=== PATIENT | male | born 1955 | race Caucasian/White ===

== ENCOUNTER 2018-05-27 18:59 | Inpatient (IN) ==
[2018-05-27 19:27] LABS: Hematocrit 46.3 % (39.0-51.0); Hemoglobin 15.4 gm/dL (13.0-17.0); Mean Corpuscular HGB Conc 33.2 % (32.0-36.0); Mean Corpuscular Hemoglobin 29.4 pg (27.0-34.0); Mean Corpuscular Volume 88.5 fL (80.0-100.0); Mean Platelet Volume 7.7 fL (7.0-11.0); Platelet Count 745 th/mm3 (150-450); Red Blood Count 5.23 mil/mm3 (4.50-5.90); Red Cell Distribution Width 12.8 % (11.6-17.2); White Blood Count 8.5 th/mm3 (4.0-11.0)
[2018-05-27 19:28] LABS: Potassium 3.6 meq/L (3.5-5.1)
[2018-05-27 19:30] LABS: Calcium 8.6 mg/dL (8.5-10.1)
[2018-05-27 19:31] LABS: Carbon Dioxide 23.5 meq/L (21.0-32.0)
[2018-05-27 19:39] LABS: INR 1.1 Ratio; Prothrombin Time 11.4 sec (9.8-11.6)
--- NOTE | 2018-05-27 19:42 | CT ---
EXAM DATE: 05/27/2018 7:35 PM EDT AGE/SEX: 62 years / Male INDICATIONS: Stroke alert; resolved right side weakness. CLINICAL DATA: This is the patient's initial encounter. Patient reports that signs and symptoms have been present for 1 day and indicates a pain score of 0/10. MEDICAL/SURGICAL HISTORY: Stroke. Hypertension. None. RADIATION DOSE: 55.52 CTDI (mGy) COMPARISON: POI, CT BRAIN W/O CONTRAST, 04/20/2018. . TECHNIQUE: CT of the head without contrast. Using automated exposure control and adjustment of the mA and/or kV according to patient size, radiation dose was kept as low as reasonably achievable to ob tain optimal diagnostic quality images. DICOM format image data is available electronically for revi ew and comparison. FINDINGS: Cerebrum: Hypodensity is seen in the left temporal lobe unchanged from the prior study of 04/20/2018. No evidence of acute intracranial hemorrhage or extra-axial fluid collection. No mass effect or midli ne shift. No evidence of acute infarct. Posterior Fossa: The cerebellum and brainstem are intact. The 4th ventricle is midline. The cerebe llopontine angle is unremarkable. Extracranial: The visualized portion of the orbits is intact. Skull: The calvaria is intact. No evidence of skull fracture. CONCLUSION: Chronic ischemic change left temporal lobe. No acute intracranial findings. Report was called by [Dr. Longo to Dr. Carlos at 1941] Electronically signed by: Charanjit Longo MD 05/27/2018 7:41 PM EDT
[2018-05-27 19:49] LABS: Eosinophils 2 % (0-4); Lymphocytes 22 % (9-44); Monocytes 11 % (0-8); Platelet Morphology Normal (Normal); RBC Morphology Normal (Normal)
[2018-05-27 19:53] LABS: Creatine Kinase 39 U/L (39-308)
--- NOTE | 2018-05-27 20:00 | XR ---
EXAM DATE: 05/27/2018 7:55 PM EDT AGE/SEX: 62 years / Male INDICATIONS: Stroke alert. CLINICAL DATA: This is the patient's initial encounter. Patient reports that signs and symptoms have been present for 1 day and indicates a pain score of 0/10. MEDICAL/SURGICAL HISTORY: . Stroke. Hypertension. None. COMPARISON: No prior exams available for comparison. FINDINGS: Single AP view the chest. The lungs are clear. Cardiomediastinal silhouette within normal limits. No evidence of pleural effusion or pneumothorax. CONCLUSION: No acute cardiopulmonary disease identified. Electronically signed by: Charanjit Longo MD 05/27/2018 7:59 PM EDT
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
--- NOTE | 2018-05-27 20:12 | CT ---
EXAM DATE: 05/27/2018 7:59 PM EDT AGE/SEX: 62 years / Male INDICATIONS: Stroke alert; resolved right side weakness. CLINICAL DATA: This is the patient's initial encounter. Patient reports that signs and symptoms have been present for 1 day and indicates a pain score of 0/10. MEDICAL/SURGICAL HISTORY: Stroke. Hypertension. None. RADIATION DOSE: 43.13 CTDI (mGy) ; Combined studies COMPARISON: [facility], CT HEAD W/O CONTRAST, 05/27/2018. . TECHNIQUE: Volumetric scanning was performed using a multi-row detector CT scanner during bolus infu jessica of 100 ml Visipaque 320 (iodixanol) nonionic water-soluble contrast as a cumulative dose for mu ltiple exams. The data was post processed with a variety of visualization algorithms including full volume maximum intensity projection, multi-planar sliding thin slab reformation, curved planar refor mation, and surface rendering techniques. Using automated exposure control and adjustment of the mA and/or kV according to patient size, radiation dose was kept as low as reasonably achievable to obtai n optimal diagnostic quality images. DICOM format image data is available electronically for review and comparison. FINDINGS: The internal carotid arteries and vertebral arteries are widely patent bilaterally. The anterior cere bral arteries are widely patent bilaterally. There is evidence of atherosclerotic disease of the dist al M1 segment on the left with mild to moderate narrowing but no evidence of proximal high-grade sten osis or occlusion. Posterior to indicating arteries are patent bilaterally. Symmetric attenuated P1 segments of the post erior cerebral arteries likely represents developmental variant. No evidence of aneurysm. CONCLUSION: 1. Atherosclerotic disease of the left MCA with mild to moderate diffuse narrowing of the distal M1 segment. No evidence of focal proximal high-grade stenosis or occlusion. 2. Prominent patent posterior communicating arteries bilaterally. Electronically signed by: Charanjit Longo MD 05/27/2018 8:11 PM EDT
--- NOTE | 2018-05-27 20:19 | CT ---
EXAM DATE: 05/27/2018 8:09 PM EDT AGE/SEX: 62 years / Male INDICATIONS: Stroke alert; resolved right side weakness. CLINICAL DATA: This is the patient's initial encounter. Patient reports that signs and symptoms have been present for 1 day and indicates a pain score of 0/10. MEDICAL/SURGICAL HISTORY: Stroke. Hypertension. None. RADIATION DOSE: 43.13 CTDI (mGy) ; Combined studies COMPARISON: POI, CTA HEAD, 03/29/2018. . TECHNIQUE: Volumetric scanning was performed using a multirow detector CT scanner during bolus infus ion of 100 ml Visipaque 320 (iodixanol) nonionic water-soluble contrast as a cumulative dose for mul tiple exams. The data was postprocessed with a variety of visualization algorithms including full-v olume maximum intensity projection, multiplanar sliding thin-slab reformation, curved-planar reformat ion, and surface-rendering techniques. Using automated exposure control and adjustment of the mA and /or kV according to patient size, radiation dose was kept as low as reasonably achievable to obtain o ptimal diagnostic quality images. DICOM format image data is available electronically for review and comparison. Percent stenosis is calculated using the diameter of the stenotic region over the diameter of the nor mal distal internal carotid artery. FINDINGS: Aortic Arch: There is a three-vessel origin of the great vessels from the aorta. No evidence of ost ial narrowing Right Carotid: The common carotid artery is intact. Mild atherosclerotic disease of the carotid bulb . The internal carotid artery lumen is smooth without stenosis. The external carotid artery is intac t. Left Carotid: The common carotid artery is intact. Mild atherosclerotic disease of the carotid bulb. There is prominent atherosclerotic disease of the intracranial portion of the left internal carotid artery that is similar to the prior study of 03/29/2018. Atherosclerotic disease of the M1 segment of the left MCA is also a chronic finding. Vertebrals: The vertebral arteries have a symmetric diameter. No stenotic lesions are seen. CONCLUSION: Chronic prominent atherosclerotic disease of the intracranial left internal carotid artery and MCA. N o evidence of new occlusion or proximal high-grade stenosis. Electronically signed by: Charanjit Longo MD 05/27/2018 8:18 PM EDT
[2018-05-27 20:21] LABS: Bilirubin,Urine Negative (Negative); Clarity,Urine Cloudy (Clear); Color,Urine Yellow (Yellw/Straw); Glucose,Urine (UA) Negative (Negative); Leukocyte Esterase,Urine Moderate (Negative); Nitrite,Urine Positive (Negative)
[2018-05-27 20:26] LABS: Bacteria,Urine Many /hpf; Squamous Epithelial Cell,Urine 0-5 /hpf (0-5); WBC,Urine Innumerable /hpf (0-5)
[2018-05-27 20:34] LABS: Amphetamine Screen,Urine Neg (Neg); Barbiturate Screen,Urine Neg (Neg); Cannabinoid Screen,Urine Neg (Neg); Cocaine Screen,Urine Neg (Neg)
[2018-05-27] MEDS: Sod Chloride 0.9% Inj 1,000 ML IV.CONT SCH (20:40)
[2018-05-27 20:45] LABS: Opiate Screen,Urine Neg (Neg)
[2018-05-27] MEDS ORDERED: Dextrose 50% in Water 50 ML Vial IV.PUSH PRN (20:46)
--- NOTE | 2018-05-27 20:48 | P.CONNEU ---
History of Present Illness Service: NEUROLOGY Consult date: 05/27/18 Primary Care Provider: Colleen Jiménez MD Family Provider: Colleen Jiménez MD Chief Complaint: ACUTE CVA History of Present Illness: IT IS A PRIVILEGE TO PROVIDE A NEUROLOGY CONSULTATION FOR THIS 62 YO GENTLEMAN REFERRED FOR A TPA EVALUATION. PT WAS NOTED AMS FOR 2DAYS SLURRED SPEECH SINCE NOON AND RIGHT ARM WEAKNESS 20MIN BEF VISITED ER Review of Systems All other systems reviewed negative except as stated in HPI Constitutional: Reports lack of energy Eyes: Denies change in vision, Denies double vision Ears, Nose, Mouth, and Throat: Reports dizziness Gastrointestinal: Denies abdominal pain Musculoskeletal: Reports abnormal walking Neurologic: Reports abnormal speech PMFSH - History History Provided By: Family Member (sister --CVA "with bleed" March 2018, htn) - Medical / Surgical Hx Neg / Unobtainable Medical Problems Denied: Yes (CVA JUKY 2018, PER SISTER + ICH. 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) - Tobacco History Second Hand Smoke Exposure: No Tobacco Use In Past 30 Days: No Smoking Status: Unknown if ever smoked - Alcohol History How Often Do You Have a Drink Containing Alcohol: Unable to Obtain - Substance Use History Substance History: No History of Abuse - Travel History Recent Travel in the [place] Within the Last 8 Weeks: No Recent Travel Out of the Country Within the Last 8 Weeks: No - Immunization History Tetanus Immunization: Unable to Assess Medications and Allergies Active Medications: Active Medications Sodium Chloride (Ns Inj) 1,000 mls @ 70 mls/hr IV.CONT .[id number] RUDY Allergies Allergy/AdvReac Type Severity Reaction Status Date / Time No Known Allergies Allergy Unverified 05/27/18 19:18 Exam Vital signs: Vital Signs 05/27/18 19:05 05/27/18 19:10 05/27/18 19:18 Temperature 98.5 F Pulse Rate 90 90 89 Respiratory Rate 16 Blood Pressure 137/82 Pulse Oximetry 98 97 05/27/18 19:34 05/27/18 19:50 05/27/18 20:06 Temperature Pulse Rate 90 89 Respiratory Rate 16 16 Blood Pressure 137/82 140/78 Pulse Oximetry 98 97 97 Intake & Output 05/27/18 05/27/18 05/28/18 06:59 18:59 06:59 Weight 83.915 kg - Constitutional no acute distress, average body habitus - Routine HEENT Exam Head: Present: normocephalic, atraumatic Eye: Present: EOMI ENT: Present: mucous membranes moist - Routine Neck Exam Present: supple. Absent: JVD, carotid bruit - Routine Chest/Breast/Axilla Exam Chest wall: Absent: tenderness, pacemaker - Routine Respiratory Exam Present: decreased breath sounds - Routine Cardiovascular Exam Present: S1, S2 - Routine Abdominal Exam Present: soft, normoactive bowel sounds. Absent: tenderness, rebound - Routine Extremities Exam Absent: cyanosis - Routine Skin Exam Present: intact - Routine Neurological Exam MENTAL STATUS AA OX PLACE AND PERSON, NAMING + PARAPHASIA REPEAT IMPAIRED COMPREHENSIONIMPAIRED LEFT RIGHT + CONFUSION, FINGER AGNOSIA-. + ACALCULIA ATTENTION 1/3 CN II-XII + EX RIGHT FACIAL WEAKNESS MOTOR TONE SPASTIC RIGHT RIGHT SIDE 3-4/5 DTR 1+ PLANTER STIMULATES FLEXOR RESPONSES SENSORY + NL FNFT NO DYSMETRIA Results - Labs CBC & Chem 7: 05/27/18 19:10 05/27/18 19:10 Labs: Laboratory Results - last 24 hr 05/27/18 05/27/18 05/27/18 19:10 19:10 19:10 CBC w Diff Slide review pending WBC 8.5 RBC 5.23 Hgb 15.4 Hct 46.3 MCV 88.5 MCH 29.4 MCHC 33.2 RDW 12.8 Plt Count 745 H MPV 7.7 WBC Differential Manual diff final Seg Neuts % (Manual) 62 Band Neuts % (Manual) 3 Lymphocytes % (Manual) 22 Monocytes % (Manual) 11 H Eosinophils % (Manual) 2 Abs Neuts (Manual) 5.5 Differential Comment . Platelet Estimate High H Platelet Morphology Normal RBC Morphology Normal PT 11.4 INR 1.1 APTT 31.0 H Fibrinogen Sodium 137 Potassium 3.6 Chloride 103 Carbon Dioxide 23.5 Anion Gap 11 BUN 15 Creatinine 0.99 Estimated GFR 77 L POC Glucose Random Glucose 102 Calcium 8.6 Total Creatine Kinase Troponin I Urine Color Urine Clarity Urine pH Ur Specific [place] Urine Protein Urine Glucose (UA) Urine Ketones Urine Occult Blood Urine Nitrate Urine Bilirubin Urine Urobilinogen Ur Leukocyte Esterase Urine RBC Urine WBC Ur Squamous Epith Cells Urine Bacteria Micro UA Comment Ur Microscopic Review Urine Culture Comments Ur Barbiturates Screen Ur Amphetamines Screen U Benzodiazepines Scrn Urine Cocaine Screen U Cannabinoids Screen 05/27/18 05/27/18 05/27/18 19:10 19:10 19:13 CBC w Diff WBC RBC Hgb Hct MCV MCH MCHC RDW Plt Count MPV WBC Differential Seg Neuts % (Manual) Band Neuts % (Manual) Lymphocytes % (Manual) Monocytes % (Manual) Eosinophils % (Manual) Abs Neuts (Manual) Differential Comment Platelet Estimate Platelet Morphology RBC Morphology PT INR APTT Fibrinogen 416 H Sodium Potassium Chloride Carbon Dioxide Anion Gap BUN Creatinine Estimated GFR POC Glucose 102 Random Glucose Calcium Total Creatine Kinase 39 Troponin I Less than 0.02 L Urine Color Urine Clarity Urine pH Ur Specific [place] Urine Protein Urine Glucose (UA) Urine Ketones Urine Occult Blood Urine Nitrate Urine Bilirubin Urine Urobilinogen Ur Leukocyte Esterase Urine RBC Urine WBC Ur Squamous Epith Cells Urine Bacteria Micro UA Comment Ur Microscopic Review Urine Culture Comments Ur Barbiturates Screen Ur Amphetamines Screen U Benzodiazepines Scrn Urine Cocaine Screen U Cannabinoids Screen 05/27/18 05/27/18 20:10 20:10 CBC w Diff WBC RBC Hgb Hct MCV MCH MCHC RDW Plt Count MPV WBC Differential Seg Neuts % (Manual) Band Neuts % (Manual) Lymphocytes % (Manual) Monocytes % (Manual) Eosinophils % (Manual) Abs Neuts (Manual) Differential Comment Platelet Estimate Platelet Morphology RBC Morphology PT INR APTT Fibrinogen Sodium Potassium Chloride Carbon Dioxide Anion Gap BUN Creatinine Estimated GFR POC Glucose Random Glucose Calcium Total Creatine Kinase Troponin I Urine Color Yellow Urine Clarity Cloudy H Urine pH 6.0 Ur Specific [place] 1.010 Urine Protein Trace Urine Glucose (UA) Negative Urine Ketones Trace H Urine Occult Blood Small H Urine Nitrate Positive H Urine Bilirubin Negative Urine Urobilinogen 1.0 Ur Leukocyte Esterase Moderate H Urine RBC 4-15 H Urine WBC Innumerable H Ur Squamous Epith Cells 0-5 Urine Bacteria Many H Micro UA Comment Culture indicated Ur Microscopic Review Microscopic reviewed Urine Culture Comments Culture indicated Ur Barbiturates Screen Neg Ur Amphetamines Screen Neg U Benzodiazepines Scrn Neg Urine Cocaine Screen Neg U Cannabinoids Screen Neg - Imaging Impressions Chest X-Ray 05/27/18 19:18 CONCLUSION: No acute cardiopulmonary disease identified. Head CT 05/27/18 19:18 CONCLUSION: Chronic ischemic change left temporal lobe. No acute intracranial findings. Report was called by [Dr. Longo to Dr. Carlos at 1941] Head CTA 05/27/18 19:18 CONCLUSION: 1. Atherosclerotic disease of the left MCA with mild to moderate diffuse narrowing of the distal M1 segment. No evidence of focal proximal high-grade stenosis or occlusion. 2. Prominent patent posterior communicating arteries bilaterally. Neck CTA 05/27/18 19:18 CONCLUSION: Chronic prominent atherosclerotic disease of the intracranial left internal carotid artery and MCA. No evidence of new occlusion or proximal high-grade stenosis. Review/Management - Diagnosis (1) Thrombocytosis Code(s): D47.3 - Essential (hemorrhagic) thrombocythemia Status: Acute Current Visit: Yes - Review/Management Plan: 1. PLAVIX X 1 DOSE NOW, BRAIN MRI W DWI FOR ACUTE PERFUSION D/W PT AND SISTER , PT HAS CONTRAINDICATION FOR TPA BASED ON HAVING HAD ANOTHER CVA WITHING 2 MONTH, PER SISTER HAMORHAGIC CVA, AND UNCLEAR INCIDENT BEGAN. SISTER UNDERSTOOD AND AGREES W THE APPROACH 2. INCREASING CVA RISK FACTORS CONTROL 3. [employer]GER CONSULT FOR ELIDATED PLT 4. SPEECH TX ASPIRATION PRECAUTION 5. CARDILOGIST WORK UP INCLUDING HOLTER AND JEFRY FOR ? EMBOLIC MCA CVA 6. PT OT 7. D/W SISTER AND ERT , WILL D/W PMD FOR [employer]S THANKS FOR THE COURTESY OF THIS VERY KINDLY REFERRAL
--- NOTE | 2018-05-27 21:53 | ECG ---
Date Performed: 05/27/2018 Time Performed: 19:05:45 PTAGE: 62 years EKG: Sinus rhythm LOW QRS VOLTAGE IN PRECORDIAL LEADS BORDERLINE ECG INTERPRETATION BASED ON A DEFAULT AGE OF 41 YEARS NO PREVIOUS TRACING DOCTOR: Kenji Allan Interpretating Date/Time 05/27/2018 21:52:20
[2018-05-27] MEDS: Insulin NovoLOG Aspart Correctional Sugar Inj SQ SCH (23:18)
[2018-05-28 07:47] LABS: Chloride 102 meq/L (98-107); Potassium 3.4 meq/L (3.5-5.1); Sodium 137 meq/L (136-145)
[2018-05-28 07:50] LABS: Anion Gap 11 meq/L (5-15); Blood Urea Nitrogen 11 mg/dL (7-18); Calcium 8.4 mg/dL (8.5-10.1); Carbon Dioxide 24.5 meq/L (21.0-32.0); Glucose,Random 98 mg/dL (74-106)
[2018-05-28 07:53] LABS: Glomerular Filtration Rate Greater Than 89 mL/min (>89)
[2018-05-28] MEDS: Insulin NovoLOG Aspart Correctional Sugar Inj SQ SCH ×4 (08:52→21:12)
[2018-05-28 11:38] LABS: Cholesterol 134 mg/dL (120-200); Triglycerides 188 mg/dL (42-150)
[2018-05-28 11:40] LABS: Chol/HDL Ratio 4.51 Ratio; HDL Cholesterol 29.7 mg/dL (40.0-60.0); LDL Cholesterol,Calculated 67 mg/dL (0-99)
[2018-05-28] MEDS: Acetaminophen 325 MG Tablet PO PRN (11:47)
[2018-05-28] MEDS: Sod Chloride 0.9% Inj 1,000 ML IV.CONT SCH (11:49)
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
--- NOTE | 2018-05-28 13:28 | ECHRPT ---
Indication: CVA/TIA CONCLUSIONS The left ventricular systolic function is hyperdynamic with an estimated ejection fraction in the ra nge of 60- 65%. Normal left ventricular size. Wall thickness is normal. No regional wall motion abnormalities are present. BP: / HR: Rhythm: Sinus MEASUREMENTS (Male / Female) Normal Values Technical Quality:Fair 2D ECHO LV Diastolic Diameter PLAX 2.9 cm 4.2 - 5.9 / 3.9 - 5.3 cm LV Systolic Diameter PLAX 2.0 cm IVS Diastolic Thickness 0.9 cm 0.6 - 1.0 / 0.6 - 0.9 cm LVPW Diastolic Thickness 1.0 cm 0.6 - 1.0 / 0.6 - 0.9 cm LV Relative Wall Thickness 0.6 RV Internal Dim ED PLAX 2.8 cm LVOT Diameter 1.9 cm LA Systolic Diameter LX 3.3 cm 3.0 - 4.0 / 2.7 - 3.8 cm LV Ejection Fraction MOD 4C 67.9 % LV Ejection Fraction 4C AL 68.3 % M-MODE Aortic Root Diameter MM 2.6 cm LA Systolic Diameter MM 3.3 cm LA Ao Ratio MM 1.3 AV Cusp Separation MM 2.1 cm DOPPLER AV Peak Velocity 134.0 cm/s AV Peak Gradient 7.2 mmHg LVOT Peak Velocity 121.0 cm/s LVOT Peak Gradient 5.9 mmHg AV Area Cont Eq pk 2.6 cm MV Area PHT 3.6 cm Mitral E Point Velocity 63.7 cm/s Mitral A Point Velocity 80.9 cm/s Mitral E to A Ratio 0.8 LV E' Lateral Velocity 10.6 cm/s Mitral E to LV E' Lateral Ratio 6.0 LV E' Septal Velocity 8.3 cm/s Mitral E to LV E' Septal Ratio 7.7 PV Peak Velocity 111.0 cm/s PV Peak Gradient 4.9 mmHg FINDINGS LEFT VENTRICLE The left ventricular systolic function is hyperdynamic with an estimated ejection fraction in the ra nge of 60- 65%. Normal left ventricular size. Wall thickness is normal. No regional wall motion abnormalities are present. RIGHT VENTRICLE Normal right ventricular size and systolic function. LEFT ATRIUM The left atrial size is normal. RIGHT ATRIUM The right atrial size is normal. ATRIAL SEPTUM Normal atrial septal thickness without atrial level shunting by limited color doppler interrogation. AORTA The aortic root and proximal ascending aorta are normal in size on limited imaging. MITRAL VALVE Structurally normal mitral valve. No mitral valve stenosis or regurgitation. AORTIC VALVE Trileaflet aortic valve. No aortic valve stenosis or regurgitation. TRICUSPID VALVE Structurally normal tricuspid valve. No tricuspid valve stenosis or regurgitation. PULMONARY VALVE The pulmonary valve is not well visualized. VESSELS The inferior vena cava is normal in size. PERICARDIUM No pericardial effusion. Kenji Allan MD (Electronically Signed) Final Date:28 May 2018 13:27
--- NOTE | 2018-05-28 16:38 | MR ---
EXAM DATE: 05/28/2018 4:20 PM EDT AGE/SEX: 62 years / Male INDICATIONS: CVA. Right upper extremity numbness. CLINICAL DATA: This is the patient's initial encounter. Patient reports that signs and symptoms have been present for 1 day and indicates a pain score of 0/10. MEDICAL/SURGICAL HISTORY: Hypertension. CVA. . ORIF right leg. COMPARISON: [facility], MR BRAIN W AND W/O CONTRAST, 03/28/2018. . TECHNIQUE: Multiplanar, multisequence examination of the brain was performed without contrast. FINDINGS: Cerebrum: Multiple areas of restricted diffusion are seen in the left MCA distribution. There is a ne w 1.7 x 1.0 cm area of restricted diffusion in the left insular cortex. Corresponding signal abnormal ity on the T2-weighted images is seen. This finding indicates acute infarct. Adjacent area of acute i nfarct is also seen in the left frontal periventricular white matter. Previously identified areas of restricted diffusion in the anterior left frontal lobe and left temporal lobe are less prominent than on the comparison study of 03/28/2018. Chronic periventricular white matter ischemic change also note d. No evidence of mass effect or midline shift. Ventricles within normal limits. No extra-axial fluid collection or acute hemorrhage. No intracranial mass. Posterior Fossa: The cerebellum and brainstem are intact. The 4th ventricle is midline. The cerebel lopontine angle is unremarkable. The cerebellar tonsils are normal in position. Extracranial: Polyps or retention cysts again seen in the maxillary sinuses. CONCLUSION: 1. Acute infarct in the left insular cortex and left frontal periventricular white matter. 2. Subacute infarcts in the left frontal lobe and temporal lobe. These areas seen on the prior study of 03/28/2018. Electronically signed by: Charanjit Longo MD 05/28/2018 4:36 PM EDT
--- NOTE | 2018-05-28 18:05 | P.PNNEU ---
Subjective Subjective Comments: RIGHT ARM WEAKNESS Active Medications: Active Medications Acetaminophen (Tylenol) 650 mg PO Q6H PRN PRN Reason: pain or headache Last Admin: 05/28/18 11:47 Dose: 650 mg Aspirin (Aspirin Chew) 81 mg PO DAILY [facility] Last Admin: 05/28/18 08:52 Dose: 81 mg Clopidogrel Bisulfate (Plavix) 75 mg PO DAILY [facility] Last Admin: 05/28/18 08:52 Dose: 75 mg Dextrose (D50w Vial) 50 ml IV.PUSH UNSCH PRN PRN Reason: PER HYPOGLYCEMIA PROTOCOL Enalaprilat (Vasotec Inj) 1.25 mg IV.PUSH Q4H PRN PRN Reason: For SBP > 220 or DBP > 120 Glucagon (Glucagon Inj) 1 mg OTHER UNSCH PRN PRN Reason: for Hypoglycemia Protocol Sodium Chloride (Ns Inj) 1,000 mls @ 70 mls/hr IV.CONT .[id number] [facility] Last Admin: 05/28/18 11:49 Dose: 70 mls/hr Ceftriaxone Sodium 1,000 mg/ (Sodium Chloride) 100 mls @ 200 mls/hr IV.SIG Q24H [facility] Last Infusion: 05/28/18 16:32 Dose: Infused Insulin Aspart (Novolog Insulin Correctional Sugar Inj) 0 unit SQ ACHS [facility]; Protocol Last Admin: 05/28/18 17:12 Dose: Not Given Pravastatin Sodium (Pravachol) 40 mg PO HS [facility] Last Admin: 05/27/18 23:39 Dose: 40 mg Ropinirole HCl (Requip) 0.25 mg PO [facility] Sodium Chloride (Ns Flush) 2 ml IV.FLUSH BID [facility] Last Admin: 05/28/18 08:52 Dose: Not Given Sodium Chloride (Ns Flush) 2 ml IV.FLUSH PRN PRN PRN Reason: FLUSH AFTER USING IV ACCESS Allergies/Adverse Reactions: Allergies Allergy/AdvReac Type Severity Reaction Status Date / Time No Known Allergies Allergy Unverified 05/27/18 19:18 Review of Systems All other systems reviewed negative except as stated in HPI Physical Exam Vital signs: Vital Signs 05/27/18 19:05 05/27/18 19:10 05/27/18 19:18 Temperature 98.5 F Pulse Rate 90 90 89 Respiratory Rate 16 Blood Pressure 137/82 Pulse Oximetry 98 97 05/27/18 19:34 05/27/18 19:50 05/27/18 20:06 Temperature Pulse Rate 90 89 Respiratory Rate 16 16 Blood Pressure 137/82 140/78 Pulse Oximetry 98 97 97 05/27/18 21:13 05/27/18 21:15 05/27/18 22:20 Temperature Pulse Rate 87 88 79 Respiratory Rate 16 Blood Pressure 147/72 H Pulse Oximetry 98 05/28/18 00:00 05/28/18 04:00 05/28/18 08:00 Temperature 98.6 F 98.3 F Pulse Rate 91 H 72 67 Respiratory Rate 18 18 Blood Pressure 130/77 133/75 Pulse Oximetry 96 96 05/28/18 12:00 Temperature 97.2 F L Pulse Rate 80 Respiratory Rate 20 Blood Pressure 127/74 Pulse Oximetry 99 Intake & Output 05/27/18 05/28/18 05/28/18 18:59 06:59 18:59 Intake Total 300 / 300 1540 / 1540 Output Total 900 / 900 2201 / 2201 Balance -600 / -600 -661 / -661 Weight 84 kg Intake: IV 100 / 100 1100 / 1100 NS Inj 1,000 ML @ 70 mls/hr IV. 1000 / 1000 CONT .[id number] RUDY Rx#: [id number] Rocephin Inj 1,000 MG In NS Inj 100 / 100 100 / 100 100 ML @ 200 mls/hr IV.SIG Q24H RUDY Rx#:[id number] Oral 200 / 200 440 / 440 Output: Urine 900 / 900 2200 / 2200 Stool 1 / 1 Other: # Voids 2 Date of Last Bowel Movement 05/26/18 05/28/18 Weight On Admission 84 kg - Constitutional no acute distress - Routine HEENT Exam Head: Present: normocephalic, atraumatic Eye: Present: EOMI ENT: Present: mucous membranes moist Objective Laboratory Results - last 24 hr 05/27/18 05/27/18 05/27/18 19:10 19:10 19:10 CBC w Diff Slide review pending WBC 8.5 RBC 5.23 Hgb 15.4 Hct 46.3 MCV 88.5 MCH 29.4 MCHC 33.2 RDW 12.8 Plt Count 745 H MPV 7.7 WBC Differential Manual diff final Seg Neuts % (Manual) 62 Band Neuts % (Manual) 3 Lymphocytes % (Manual) 22 Monocytes % (Manual) 11 H Eosinophils % (Manual) 2 Abs Neuts (Manual) 5.5 Differential Comment . Platelet Estimate High H Platelet Morphology Normal RBC Morphology Normal PT INR APTT Fibrinogen Sodium 137 Potassium 3.6 Chloride 103 Carbon Dioxide 23.5 Anion Gap 11 BUN 15 Creatinine 0.99 Estimated GFR 77 L POC Glucose Random Glucose 102 Hemoglobin A1c Calcium 8.6 Total Creatine Kinase Troponin I Triglycerides Cholesterol LDL Cholesterol, Calc HDL Cholesterol Cholesterol/HDL Ratio Urine Color Urine Clarity Urine pH Ur Specific [place] Urine Protein Urine Glucose (UA) Urine Ketones Urine Occult Blood Urine Nitrate Urine Bilirubin Urine Urobilinogen Ur Leukocyte Esterase Urine RBC Urine WBC Ur Squamous Epith Cells Urine Bacteria Micro UA Comment Ur Microscopic Review Urine Culture Comments Urine Opiates Screen Ur Barbiturates Screen Ur Amphetamines Screen U Benzodiazepines Scrn Urine Cocaine Screen U Cannabinoids Screen Blood Type O Negative Blood Type Recheck Not needed Antibody Screen Positive H Antibody Identification Antigen Identification M Antigen - NEGATIVE MTS Gel Crossmatch See Detail 05/27/18 05/27/18 05/27/18 19:10 19:10 19:10 CBC w Diff WBC RBC Hgb Hct MCV MCH MCHC RDW Plt Count MPV WBC Differential Seg Neuts % (Manual) Band Neuts % (Manual) Lymphocytes % (Manual) Monocytes % (Manual) Eosinophils % (Manual) Abs Neuts (Manual) Differential Comment Platelet Estimate Platelet Morphology RBC Morphology PT 11.4 INR 1.1 APTT 31.0 H Fibrinogen 416 H Sodium Potassium Chloride Carbon Dioxide Anion Gap BUN Creatinine Estimated GFR POC Glucose Random Glucose Hemoglobin A1c Calcium Total Creatine Kinase 39 Troponin I Less than 0.02 L Triglycerides Cholesterol LDL Cholesterol, Calc HDL Cholesterol Cholesterol/HDL Ratio Urine Color Urine Clarity Urine pH Ur Specific [place] Urine Protein Urine Glucose (UA) Urine Ketones Urine Occult Blood Urine Nitrate Urine Bilirubin Urine Urobilinogen Ur Leukocyte Esterase Urine RBC Urine WBC Ur Squamous Epith Cells Urine Bacteria Micro UA Comment Ur Microscopic Review Urine Culture Comments Urine Opiates Screen Ur Barbiturates Screen Ur Amphetamines Screen U Benzodiazepines Scrn Urine Cocaine Screen U Cannabinoids Screen Blood Type Blood Type Recheck Antibody Screen Antibody Identification Antigen Identification MTS Gel Crossmatch 05/27/18 05/27/18 05/27/18 19:13 20:10 20:10 CBC w Diff WBC RBC Hgb Hct MCV MCH MCHC RDW Plt Count MPV WBC Differential Seg Neuts % (Manual) Band Neuts % (Manual) Lymphocytes % (Manual) Monocytes % (Manual) Eosinophils % (Manual) Abs Neuts (Manual) Differential Comment Platelet Estimate Platelet Morphology RBC Morphology PT INR APTT Fibrinogen Sodium Potassium Chloride Carbon Dioxide Anion Gap BUN Creatinine Estimated GFR POC Glucose 102 Random Glucose Hemoglobin A1c Calcium Total Creatine Kinase Troponin I Triglycerides Cholesterol LDL Cholesterol, Calc HDL Cholesterol Cholesterol/HDL Ratio Urine Color Yellow Urine Clarity Cloudy H Urine pH 6.0 Ur Specific [place] 1.010 Urine Protein Trace Urine Glucose (UA) Negative Urine Ketones Trace H Urine Occult Blood Small H Urine Nitrate Positive H Urine Bilirubin Negative Urine Urobilinogen 1.0 Ur Leukocyte Esterase Moderate H Urine RBC 4-15 H Urine WBC Innumerable H Ur Squamous Epith Cells 0-5 Urine Bacteria Many H Micro UA Comment Culture indicated Ur Microscopic Review Microscopic reviewed Urine Culture Comments Culture indicated Urine Opiates Screen Neg Ur Barbiturates Screen Neg Ur Amphetamines Screen Neg U Benzodiazepines Scrn Neg Urine Cocaine Screen Neg U Cannabinoids Screen Neg Blood Type Blood Type Recheck Antibody Screen Antibody Identification Antigen Identification MTS Gel Crossmatch 05/27/18 05/28/18 05/28/18 23:17 05:06 07:00 CBC w Diff WBC RBC Hgb Hct MCV MCH MCHC RDW Plt Count MPV WBC Differential Seg Neuts % (Manual) Band Neuts % (Manual) Lymphocytes % (Manual) Monocytes % (Manual) Eosinophils % (Manual) Abs Neuts (Manual) Differential Comment Platelet Estimate Platelet Morphology RBC Morphology PT INR APTT Fibrinogen Sodium 137 Potassium 3.4 L Chloride 102 Carbon Dioxide 24.5 Anion Gap 11 BUN 11 Creatinine 0.77 Estimated GFR Greater than 89 POC Glucose 90 Random Glucose 98 Hemoglobin A1c Calcium 8.4 L Total Creatine Kinase Troponin I Triglycerides 188 H Cholesterol 134 LDL Cholesterol, Calc 67 HDL Cholesterol 29.7 L Cholesterol/HDL Ratio 4.51 Urine Color Urine Clarity Urine pH Ur Specific [place] Urine Protein Urine Glucose (UA) Urine Ketones Urine Occult Blood Urine Nitrate Urine Bilirubin Urine Urobilinogen Ur Leukocyte Esterase Urine RBC Urine WBC Ur Squamous Epith Cells Urine Bacteria Micro UA Comment Ur Microscopic Review Urine Culture Comments Urine Opiates Screen Ur Barbiturates Screen Ur Amphetamines Screen U Benzodiazepines Scrn Urine Cocaine Screen U Cannabinoids Screen Blood Type Blood Type Recheck Antibody Screen Antibody Identification Anti-M Antigen Identification MTS Gel Crossmatch 05/28/18 05/28/18 05/28/18 07:00 07:49 11:54 CBC w Diff WBC RBC Hgb Hct MCV MCH MCHC RDW Plt Count MPV WBC Differential Seg Neuts % (Manual) Band Neuts % (Manual) Lymphocytes % (Manual) Monocytes % (Manual) Eosinophils % (Manual) Abs Neuts (Manual) Differential Comment Platelet Estimate Platelet Morphology RBC Morphology PT INR APTT Fibrinogen Sodium Potassium Chloride Carbon Dioxide Anion Gap BUN Creatinine Estimated GFR POC Glucose 93 95 Random Glucose Hemoglobin A1c 6.0 Calcium Total Creatine Kinase Troponin I Triglycerides Cholesterol LDL Cholesterol, Calc HDL Cholesterol Cholesterol/HDL Ratio Urine Color Urine Clarity Urine pH Ur Specific [place] Urine Protein Urine Glucose (UA) Urine Ketones Urine Occult Blood Urine Nitrate Urine Bilirubin Urine Urobilinogen Ur Leukocyte Esterase Urine RBC Urine WBC Ur Squamous Epith Cells Urine Bacteria Micro UA Comment Ur Microscopic Review Urine Culture Comments Urine Opiates Screen Ur Barbiturates Screen Ur Amphetamines Screen U Benzodiazepines Scrn Urine Cocaine Screen U Cannabinoids Screen Blood Type Blood Type Recheck Antibody Screen Antibody Identification Antigen Identification MTS Gel Crossmatch 05/28/18 17:00 CBC w Diff WBC RBC Hgb Hct MCV MCH MCHC RDW Plt Count MPV WBC Differential Seg Neuts % (Manual) Band Neuts % (Manual) Lymphocytes % (Manual) Monocytes % (Manual) Eosinophils % (Manual) Abs Neuts (Manual) Differential Comment Platelet Estimate Platelet Morphology RBC Morphology PT INR APTT Fibrinogen Sodium Potassium Chloride Carbon Dioxide Anion Gap BUN Creatinine Estimated GFR POC Glucose 113 H Random Glucose Hemoglobin A1c Calcium Total Creatine Kinase Troponin I Triglycerides Cholesterol LDL Cholesterol, Calc HDL Cholesterol Cholesterol/HDL Ratio Urine Color Urine Clarity Urine pH Ur Specific [place] Urine Protein Urine Glucose (UA) Urine Ketones Urine Occult Blood Urine Nitrate Urine Bilirubin Urine Urobilinogen Ur Leukocyte Esterase Urine RBC Urine WBC Ur Squamous Epith Cells Urine Bacteria Micro UA Comment Ur Microscopic Review Urine Culture Comments Urine Opiates Screen Ur Barbiturates Screen Ur Amphetamines Screen U Benzodiazepines Scrn Urine Cocaine Screen U Cannabinoids Screen Blood Type Blood Type Recheck Antibody Screen Antibody Identification Antigen Identification MTS Gel Crossmatch Microbiology 05/27/18 20:10 Urine Culture - Preliminary Clean Catch Urine gram negative rods Review/Management - Diagnosis (1) Thrombocytosis Code(s): D47.3 - Essential (hemorrhagic) thrombocythemia Status: Acute Current Visit: Yes - Review/Management Plan: 1. TO CHECKBRAIN MRI W DWI FOR ACUTE PERFUSION D/W PT AND SISTER, PT HAS CONTRAINDICATION FOR TPA BASED ON HAVING HAD ANOTHER CVA WITHING 2 MONTH, PER SISTER HAMORHAGIC CVA, AND UNCLEAR INCIDENT BEGAN. SISTER UNDERSTOOD AND AGREES W THE APPROACH 2. INCREASING CVA RISK FACTORS CONTROL 3. MAY [employer] DIRECTOR OF CURRICULUM AND INSTRUCTION CONSULT FOR ELIDATED PLT 4. SPEECH TX ASPIRATION PRECAUTION 5. CARDILOGIST WORK UP INCLUDING HOLTER AND JEFRY FOR ? EMBOLIC MCA CVA 6. PT OT 7. D/W SISTER AND ERT , WILL D/W PMD FOR APPROVELS THANKS FOR THE COURTESY OF THIS VERY KINDLY REFERRAL
[2018-05-29] MEDS: Sod Chloride 0.9% Inj 1,000 ML IV.CONT SCH ×3 (00:11→14:13)
[2018-05-29 04:21] LABS: Baso # (Auto) 0.1 th/mm3 (0.0-0.2); Baso % (Auto) 1.3 % (0.0-2.0); Eos # (Auto) 0.2 th/mm3 (0.0-0.4); Eos % (Auto) 3.9 % (0.0-4.0); Hematocrit 41.5 % (39.0-51.0); Hemoglobin 14.4 gm/dL (13.0-17.0); Lymph # (Auto) 1.8 th/mm3 (1.0-4.8); Lymph % (Auto) 27.7 % (9.0-44.0); Mean Corpuscular HGB Conc 34.7 % (32.0-36.0); Mean Corpuscular Volume 86.4 fL (80.0-100.0); Mean Platelet Volume 7.1 fL (7.0-11.0); Mono # (Auto) 1.7 th/mm3 (0.0-0.9); Mono % (Auto) 26.5 % (0.0-8.0); Neut # (Auto) 2.6 th/mm3 (1.8-7.7); Neut % (Auto) 40.6 % (16.0-70.0); Platelet Count 645 th/mm3 (150-450); Red Blood Count 4.81 mil/mm3 (4.50-5.90); Red Cell Distribution Width 13.8 % (11.6-17.2); White Blood Count 6.4 th/mm3 (4.0-11.0)
[2018-05-29 04:52] LABS: Alanine Aminotransferase 32 U/L (12-78); Anion Gap 10 meq/L (5-15); Aspartate Aminotransferase 27 U/L (15-37); Blood Urea Nitrogen 10 mg/dL (7-18); Calcium 8.4 mg/dL (8.5-10.1); Carbon Dioxide 23.4 meq/L (21.0-32.0); Chloride 106 meq/L (98-107); Glomerular Filtration Rate Greater Than 89 mL/min (>89); Glucose,Random 93 mg/dL (74-106); Potassium 3.4 meq/L (3.5-5.1); Sodium 139 meq/L (136-145)
[2018-05-29 04:55] LABS: Alkaline Phosphatase 100 U/L (45-117); Total Protein 7.6 g/dL (6.4-8.2)
--- NOTE | 2018-05-29 07:47 | P.CONCA ---
History of Present Illness Primary Care Provider: Colleen Jiménez MD Family Provider: Colleen Jiménez MD Chief Complaint: ACUTE CVA History of Present Illness: 62-year-old male with a past medical history of HTN, HLD who presented for right arm weakness. The patient was found to have acute CVA. The patient also had a recent CVA in March. We have been consulted to evaluate for cardiac causes of recurrent occult CVA. The patient denies any past medical history of arrhythmia, A. fib, palpitations. EKG and telemetry with NSR. JEFRY done this admission was unremarkable. Review of Systems All other systems reviewed negative except as stated in HPI [facility] - History History Provided By: Patient, Medical Record - Medical / Surgical Hx Neg / Unobtainable Medical Problems Denied: Yes (CVA JUKY 2018, PER SISTER + ICH. 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) - Medical History Medical History: Medical History (Last Reviewed 05/29/18 @ 09:24 by Jeanie Monahan) Chronic headache Frequent UTI GERD (gastroesophageal reflux disease) HLD (hyperlipidemia) HTN (hypertension) History of CVA (cerebrovascular accident) History of diverticulitis History of end stage renal disease History of hypertension History of intracranial hemorrhage History of pneumothorax RLS (restless legs syndrome) Short-term memory loss - Surgical History Surgical History: Surgical History (Last Reviewed 05/29/18 @ 09:24 by Jeanie Monahan) Post-splenectomy - Tobacco History Second Hand Smoke Exposure: No Tobacco Use In Past 30 Days: No Smoking Status: Never smoker - Alcohol History How Often Do You Have a Drink Containing Alcohol: Never - Substance Use History Substance History: No History of Abuse - Travel History Recent Travel in the [place] Within the Last 8 Weeks: No Recent Travel Out of the Country Within the Last 8 Weeks: No - Immunization History Tetanus Immunization: Unable to Assess Hx Influenza Vaccine This Season: No Medications and Allergies Allergies Allergy/AdvReac Type Severity Reaction Status Date / Time No Known Allergies Allergy Unverified 05/27/18 19:18 Home Medications Medication Instructions Recorded Confirmed Type amlodipine 5 mg PO BID 05/27/18 05/27/18 History aspirin 81 mg PO DAILY 05/27/18 05/27/18 History atorvastatin 10 mg PO HS 05/27/18 05/27/18 History enalapril maleate 20 mg PO BID 05/27/18 05/27/18 History omeprazole magnesium [Prilosec OTC] 20 mg PO DAILY 05/27/18 05/27/18 History tramadol 50 mg PO Q12H 05/27/18 05/27/18 History Active Medications: Active Medications Acetaminophen (Tylenol) 650 mg PO Q6H PRN PRN Reason: pain or headache Last Admin: 05/28/18 11:47 Dose: 650 mg Aspirin (Aspirin Chew) 81 mg PO DAILY [facility] Last Admin: 05/28/18 08:52 Dose: 81 mg Clopidogrel Bisulfate (Plavix) 75 mg PO DAILY [facility] Last Admin: 05/28/18 08:52 Dose: 75 mg Dextrose (D50w Vial) 50 ml IV.PUSH UNSCH PRN PRN Reason: PER HYPOGLYCEMIA PROTOCOL Enalaprilat (Vasotec Inj) 1.25 mg IV.PUSH Q4H PRN PRN Reason: For SBP > 220 or DBP > 120 Glucagon (Glucagon Inj) 1 mg OTHER UNSCH PRN PRN Reason: for Hypoglycemia Protocol Sodium Chloride (Ns Inj) 1,000 mls @ 70 mls/hr IV.CONT .[id number] [facility] Last Infusion: 05/29/18 03:21 Dose: 70 mls/hr Ceftriaxone Sodium 1,000 mg/ (Sodium Chloride) 100 mls @ 200 mls/hr IV.SIG Q24H [facility] Last Infusion: 05/28/18 16:32 Dose: Infused Insulin Aspart (Novolog Insulin Correctional Sugar Inj) 0 unit SQ ACHS [facility]; Protocol Last Admin: 05/28/18 21:12 Dose: Not Given Pravastatin Sodium (Pravachol) 40 mg PO HS [facility] Last Admin: 05/28/18 21:24 Dose: 40 mg Ropinirole HCl (Requip) 0.25 mg PO HS [facility] Last Admin: 05/28/18 21:24 Dose: 0.25 mg Sodium Chloride (Ns Flush) 2 ml IV.FLUSH BID [facility] Last Admin: 05/28/18 21:13 Dose: Not Given Sodium Chloride (Ns Flush) 2 ml IV.FLUSH PRN PRN PRN Reason: FLUSH AFTER USING IV ACCESS Exam Vital signs: Vital Signs 05/28/18 08:00 05/28/18 12:00 05/28/18 19:00 Temperature 97.2 F L 98 F Pulse Rate 67 80 82 Respiratory Rate 20 16 Blood Pressure 127/74 149/88 H Pulse Oximetry 99 98 05/28/18 20:00 05/28/18 21:00 05/28/18 22:00 Temperature Pulse Rate 85 84 85 Respiratory Rate Blood Pressure Pulse Oximetry 05/28/18 23:00 05/29/18 00:00 05/29/18 01:00 Temperature 98.5 F Pulse Rate 76 69 67 Respiratory Rate 16 Blood Pressure 135/77 Pulse Oximetry 98 05/29/18 02:00 05/29/18 03:00 05/29/18 04:00 Temperature 98.4 F Pulse Rate 70 89 66 Respiratory Rate 16 Blood Pressure 155/80 H Pulse Oximetry 96 05/29/18 05:00 05/29/18 06:00 Temperature Pulse Rate 84 66 Respiratory Rate Blood Pressure Pulse Oximetry Intake & Output 05/28/18 05/29/18 05/29/18 18:59 06:59 18:59 Intake Total 1540 / 1540 740 / 740 Output Total 2201 / 2201 400 / 400 Balance -661 / -661 340 / 340 Weight 169 lb 12.095 oz Intake: IV 1100 / 1100 500 / 500 NS Inj 1,000 ML @ 70 mls/hr IV. 1000 / 1000 500 / 500 CONT .[id number] RUDY Rx#: [id number] Rocephin Inj 1,000 MG In NS Inj 100 / 100 100 ML @ 200 mls/hr IV.SIG Q24H RUDY Rx#:[id number] Oral 440 / 440 240 / 240 Output: Urine 2200 / 2200 400 / 400 Stool 1 / Other: # Voids 2 3 Date of Last Bowel Movement 05/28/18 05/26/18 Narrative: GENERAL: Well-developed well-nourished. In no acute distress. NECK: No carotid bruits. No JVD. CARDIOVASCULAR: Regular rate and rhythm. No murmur appreciated. RESPIRATORY: No accessory muscle use. Clear to auscultation. Breath sounds equal bilaterally. MUSCULOSKELETAL: No clubbing or cyanosis. No edema. NEUROLOGICAL: Dysarthria. RUE weaker than LUE. Results 05/29/18 03:50 05/29/18 03:50 Cardiac Enzymes 05/29/18 Range/Units 03:50 AST 27 (15-37) U/L Lipids 05/28/18 Range/Units 07:00 Triglycerides 188 H (42-150) mg/dL Cholesterol 134 (120-200) mg/dL HDL Cholesterol 29.7 L (40.0-60.0) mg/dL Cholesterol/HDL Ratio 4.51 Ratio CBC 05/29/18 Range/Units 03:50 WBC 6.4 (4.0-11.0) th/mm3 RBC 4.81 (4.50-5.90) mil/mm3 Hgb 14.4 (13.0-17.0) gm/dL Hct 41.5 (39.0-51.0) % Plt Count 645 H (150-450) th/mm3 Neut # (Auto) 2.6 (1.8-7.7) th/mm3 Lymph # (Auto) 1.8 (1.0-4.8) th/mm3 [place] # (Auto) 1.7 H (0.0-0.9) th/mm3 Eos # (Auto) 0.2 (0.0-0.4) th/mm3 Baso # (Auto) 0.1 (0.0-0.2) th/mm3 Comprehensive Metabolic Panel 05/28/18 05/29/18 Range/Units 07:00 03:50 Sodium 137 139 (136-145) meq/L Potassium 3.4 L 3.4 L (3.5-5.1) meq/L Chloride 102 106 (98-107) meq/L Carbon Dioxide 24.5 23.4 (21.0-32.0) meq/L BUN 11 10 (7-18) mg/dL Creatinine 0.77 0.63 (0.60-1.30) mg/dL Calcium 8.4 L 8.4 L (8.5-10.1) mg/dL AST 27 (15-37) U/L ALT 32 (12-78) U/L Alkaline Phosphatase 100 (45-117) U/L Total Protein 7.6 (6.4-8.2) g/dL Albumin 3.0 L (3.4-5.0) g/dL Intake and Output 05/28/18 05/29/18 05/29/18 22:59 06:59 14:59 Intake Total 840 / 840 240 / 240 Output Total 1401 / 1401 400 / 400 Balance -561 / -561 -160 / -160 Intake: IV 600 / 600 0 / 0 NS Inj 1,000 ML @ 70 mls/hr IV. 500 / 500 0 / 0 CONT .[id number] RUDY Rx#: [id number] Rocephin Inj 1,000 MG In NS Inj 100 / 100 100 ML @ 200 mls/hr IV.SIG Q24H RUDY Rx#:[id number] Oral 240 / 240 240 / 240 Output: Urine 1400 / 1400 400 / 400 Stool Other: # Voids 2 3 Date of Last Bowel Movement 05/26/18 05/26/18 Weight 169 lb 12.095 oz Assessment and Plan - Plan 62-year-old male with a past medical history of HTN, HLD who presented for right arm weakness. The patient was found to have acute CVA. The patient also had a recent CVA in March. Recurrent occult CVA: Rule out PFO, n.p.o. for JEFRY today. Continue telemetry monitoring for now, consider event monitor as outpatient. Discussed Condition With: Patient with RN at bedside, Dr. Mario - Attending Attestation recurrent CVA on aspirin therapy MRI confirms acute stroke and remote infarcts in multiple territories consistent with possible cardioembolic etiology NPO JEFRY today if negative, will need event monitor x 30 days mgt per neurology (aspirin + plavix)
[2018-05-29] MEDS: Insulin NovoLOG Aspart Correctional Sugar Inj SQ SCH ×4 (07:57→22:28)
--- NOTE | 2018-05-29 09:52 | P.PNIM ---
Subjective Interval history: no new complaints says the right arm still weak with parasthesias Physical Exam Vital signs: Vital Signs 05/28/18 12:00 05/28/18 19:00 05/28/18 20:00 Temperature 97.2 F L 98 F Pulse Rate 80 82 85 Respiratory Rate 20 16 Blood Pressure 127/74 149/88 H Pulse Oximetry 99 98 05/28/18 21:00 05/28/18 22:00 05/28/18 23:00 Temperature 98.5 F Pulse Rate 84 85 76 Respiratory Rate 16 Blood Pressure 135/77 Pulse Oximetry 98 05/29/18 00:00 05/29/18 01:00 05/29/18 02:00 Temperature Pulse Rate 69 67 70 Respiratory Rate Blood Pressure Pulse Oximetry 05/29/18 03:00 05/29/18 04:00 05/29/18 05:00 Temperature 98.4 F Pulse Rate 89 66 84 Respiratory Rate 16 Blood Pressure 155/80 H Pulse Oximetry 96 05/29/18 06:00 05/29/18 07:00 05/29/18 08:00 Temperature 98.1 F Pulse Rate 66 83 89 Respiratory Rate 18 Blood Pressure 121/63 Pulse Oximetry 98 05/29/18 09:00 05/29/18 09:41 Temperature Pulse Rate 89 93 H Respiratory Rate Blood Pressure Pulse Oximetry Intake & Output 05/28/18 05/29/18 05/29/18 18:59 06:59 18:59 Intake Total 1540 / 1540 740 / 740 Output Total 2201 / 2201 400 / 400 Balance -661 / -661 340 / 340 Weight 77 kg Intake: IV 1100 / 1100 500 / 500 NS Inj 1,000 ML @ 70 mls/hr IV. 1000 / 1000 500 / 500 CONT .[id number] RUDY Rx#: [id number] Rocephin Inj 1,000 MG In NS Inj 100 / 100 100 ML @ 200 mls/hr IV.SIG Q24H RUDY Rx#:[id number] Oral 440 / 440 240 / 240 Output: Urine 2200 / 2200 400 / 400 Stool 1 / 1 Other: # Voids 2 3 Date of Last Bowel Movement 05/28/18 05/26/18 heart reg lung cta abd s/nt ext no edema right arm weakness Results - Labs CBC & Chem 7: 05/29/18 03:50 05/29/18 03:50 Laboratory Results - last 24 hr 05/27/18 05/28/18 05/28/18 20:10 07:00 07:00 WBC RBC Hgb Hct MCV MCH MCHC RDW Plt Count MPV Neut % (Auto) Lymph % (Auto) [place] % (Auto) Eos % (Auto) Baso % (Auto) Neut # (Auto) Lymph # (Auto) [place] # (Auto) Eos # (Auto) Baso # (Auto) WBC Differential Differential Comment Sodium Potassium Chloride Carbon Dioxide Anion Gap BUN Creatinine Estimated GFR POC Glucose Random Glucose Hemoglobin A1c 6.0 Calcium Total Bilirubin AST ALT Alkaline Phosphatase Total Protein Albumin Triglycerides 188 H Cholesterol 134 LDL Cholesterol, Calc 67 HDL Cholesterol 29.7 L Cholesterol/HDL Ratio 4.51 Urine Color Yellow Urine Clarity Cloudy H Urine pH 6.0 Ur Specific [place] 1.010 Urine Protein Trace Urine Glucose (UA) Negative Urine Ketones Trace H Urine Occult Blood Small H Urine Nitrate Positive H Urine Bilirubin Negative Urine Urobilinogen 1.0 Ur Leukocyte Esterase Moderate H Urine RBC 4-15 H Urine WBC Innumerable H Ur Squamous Epith Cells 0-5 Urine Bacteria Many H Micro UA Comment Culture indicated Ur Microscopic Review Microscopic reviewed Urine Culture Comments Culture indicated 05/28/18 05/28/18 05/28/18 11:54 17:00 20:01 WBC RBC Hgb Hct MCV MCH MCHC RDW Plt Count MPV Neut % (Auto) Lymph % (Auto) [place] % (Auto) Eos % (Auto) Baso % (Auto) Neut # (Auto) Lymph # (Auto) [place] # (Auto) Eos # (Auto) Baso # (Auto) WBC Differential Differential Comment Sodium Potassium Chloride Carbon Dioxide Anion Gap BUN Creatinine Estimated GFR POC Glucose 95 113 H 37 L* Random Glucose Hemoglobin A1c Calcium Total Bilirubin AST ALT Alkaline Phosphatase Total Protein Albumin Triglycerides Cholesterol LDL Cholesterol, Calc HDL Cholesterol Cholesterol/HDL Ratio Urine Color Urine Clarity Urine pH Ur Specific [place] Urine Protein Urine Glucose (UA) Urine Ketones Urine Occult Blood Urine Nitrate Urine Bilirubin Urine Urobilinogen Ur Leukocyte Esterase Urine RBC Urine WBC Ur Squamous Epith Cells Urine Bacteria Micro UA Comment Ur Microscopic Review Urine Culture Comments 05/28/18 05/29/18 05/29/18 20:04 03:50 03:50 WBC 6.4 RBC 4.81 Hgb 14.4 Hct 41.5 MCV 86.4 MCH 30.0 MCHC 34.7 RDW 13.8 Plt Count 645 H MPV 7.1 Neut % (Auto) 40.6 Lymph % (Auto) 27.7 [place] % (Auto) 26.5 H Eos % (Auto) 3.9 Baso % (Auto) 1.3 Neut # (Auto) 2.6 Lymph # (Auto) 1.8 [place] # (Auto) 1.7 H Eos # (Auto) 0.2 Baso # (Auto) 0.1 WBC Differential . Differential Comment Auto diff final Sodium 139 Potassium 3.4 L Chloride 106 Carbon Dioxide 23.4 Anion Gap 10 BUN 10 Creatinine 0.63 Estimated GFR Greater than 89 POC Glucose 97 Random Glucose 93 Hemoglobin A1c Calcium 8.4 L Total Bilirubin 0.6 AST 27 ALT 32 Alkaline Phosphatase 100 Total Protein 7.6 Albumin 3.0 L Triglycerides Cholesterol LDL Cholesterol, Calc HDL Cholesterol Cholesterol/HDL Ratio Urine Color Urine Clarity Urine pH Ur Specific [place] Urine Protein Urine Glucose (UA) Urine Ketones Urine Occult Blood Urine Nitrate Urine Bilirubin Urine Urobilinogen Ur Leukocyte Esterase Urine RBC Urine WBC Ur Squamous Epith Cells Urine Bacteria Micro UA Comment Ur Microscopic Review Urine Culture Comments 05/29/18 07:57 WBC RBC Hgb Hct MCV MCH MCHC RDW Plt Count MPV Neut % (Auto) Lymph % (Auto) [place] % (Auto) Eos % (Auto) Baso % (Auto) Neut # (Auto) Lymph # (Auto) [place] # (Auto) Eos # (Auto) Baso # (Auto) WBC Differential Differential Comment Sodium Potassium Chloride Carbon Dioxide Anion Gap BUN Creatinine Estimated GFR POC Glucose 87 Random Glucose Hemoglobin A1c Calcium Total Bilirubin AST ALT Alkaline Phosphatase Total Protein Albumin Triglycerides Cholesterol LDL Cholesterol, Calc HDL Cholesterol Cholesterol/HDL Ratio Urine Color Urine Clarity Urine pH Ur Specific [place] Urine Protein Urine Glucose (UA) Urine Ketones Urine Occult Blood Urine Nitrate Urine Bilirubin Urine Urobilinogen Ur Leukocyte Esterase Urine RBC Urine WBC Ur Squamous Epith Cells Urine Bacteria Micro UA Comment Ur Microscopic Review Urine Culture Comments Microbiology 05/27/18 20:10 Clean Catch Urine Urine Culture - Preliminary gram negative rods - Imaging Impressions Head MRI 05/28/18 00:00 CONCLUSION: 1. Acute infarct in the left insular cortex and left frontal periventricular white matter. 2. Subacute infarcts in the left frontal lobe and temporal lobe. These areas seen on the prior study of 03/28/2018. Assessment and Plan - Assessment (1) CVA (cerebrovascular accident) Code(s): I63.9 - Cerebral infarction, unspecified Status: Acute Plan: 1. acute cva acute infarct left insular cortex/left frontal subacute infarcts left frontal/temporal. MRI brain 05/28: CONCLUSION: 1. Acute infarct in the left insular cortex and left frontal periventricular white matter. 2. Subacute infarcts in the left frontal lobe and temporal lobe. These areas seen on the prior study of 03/28/2018. CTA BRAIN/CTA carotids 05/28 Atherosclerosis of left mca, mild/mod m1 segment, and left internal carotid cont asa/plavix JEFRY today neuro following OT/PT evaluation. 2. uti. gnr cont abx f/u cx's 3. htn (2) Thrombocytosis Code(s): D47.3 - Essential (hemorrhagic) thrombocythemia Status: Acute (3) UTI (urinary tract infection) Code(s): N39.0 - Urinary tract infection, site not specified Status: Acute (1) CVA (cerebrovascular accident) Qualifiers: CVA mechanism: unspecified Qualified Code(s): I63.9 - Cerebral infarction, unspecified
[2018-05-29] MEDS ORDERED: Metoprolol Tartrate 25 MG Tablet PO ONE (11:00)
[2018-05-29] MEDS ORDERED: Sodium Chlor 0.9% Inj 500 ML IV.CONT ONE (11:00)
[2018-05-29] MEDS ORDERED: Chlorhexidine Gluconate 2% 1 Pack (2 Cloths) TOPICAL ONE (11:00)
--- NOTE | 2018-05-29 14:50 | ECHRPT ---
Indication: cva/tia CONCLUSIONS Normal left ventricular size and wall thickness. The left ventricular systolic function is normal wi th an estimated ejection fraction in the range of 60-65%. Left ventricular diastolic function parameters a re normal. Normal left atrial appendage size with no evidence of thrombus formation. Normal atrial septal thickness. Small left to right atrial level shunt is observed with agitated saline contrast administration. Structurally normal mitral valve. Mild mitral valve regurgitation. BP: / HR: Rhythm: Technical Quality: Medications Complications Proc. Components The patient was brought to the diagnostic imaging area in a fasting state after o btaining an informed consent. The patient was premedicated with IV Versed and IV Fentanyl. The visiting nurse ior pharynx was sprayed with Cetacaine spray and the patient was administered viscous Xylocaine 2 %. The JEFRY probe was passed into the posterior pharynx , mid-esophagus, distal esophagus, and gastric fundus. JEFRY was performed at multiple levels. The patient tolerated the procedure well and there were no complications. The patient was transferred to the floor in satisfactory condition.. FINDINGS LEFT VENTRICLE Normal left ventricular size and wall thickness. The left ventricular systolic function is normal wi th an estimated ejection fraction in the range of 60-65%. Left ventricular diastolic function parameters a re normal. RIGHT VENTRICLE Normal right ventricular size and systolic function. LEFT ATRIUM The left atrial size is normal. RIGHT ATRIUM The right atrial size is normal. ATRIAL APPENDAGES Normal left atrial appendage size with no evidence of thrombus formation. ATRIAL SEPTUM Normal atrial septal thickness. Small left to right atrial level shunt is observed with agitated saline contrast administration. AORTA The aortic root and proximal ascending aorta are normal in size on limited imaging. MITRAL VALVE Structurally normal mitral valve. Mild mitral valve regurgitation. AORTIC VALVE Trileaflet aortic valve. No aortic valve stenosis or regurgitation. TRICUSPID VALVE Structurally normal tricuspid valve. No tricuspid valve stenosis or regurgitation. VESSELS The inferior vena cava is normal in size. PULMONARY VALVE The pulmonary valve is not well visualized. PERICADIUM No pericardial effusion. Roddy Mario MD, FACC (Electronically Signed) Final Date:29 May 2018 14:49
[2018-05-29] MEDS: Acetaminophen 325 MG Tablet PO PRN (15:41)
[2018-05-30] MEDS: Sod Chloride 0.9% Inj 1,000 ML IV.CONT SCH ×4 (01:29→21:22)
--- NOTE | 2018-05-30 08:22 | P.PNCA ---
Subjective Interval history: Telemetry with no A. fib noted overnight. Physical Exam Vital signs: Vital Signs 05/29/18 09:00 05/29/18 09:41 05/29/18 11:00 Temperature 98.2 F Pulse Rate 89 93 H 75 Respiratory Rate 18 Blood Pressure 139/78 Pulse Oximetry 98 05/29/18 12:00 05/29/18 13:00 05/29/18 14:00 Temperature Pulse Rate 73 93 H 92 H Respiratory Rate Blood Pressure Pulse Oximetry 05/29/18 15:00 05/29/18 16:00 05/29/18 16:39 Temperature 97.8 F Pulse Rate 86 71 62 Respiratory Rate 18 Blood Pressure 159/85 H Pulse Oximetry 99 05/29/18 17:40 05/29/18 19:00 05/29/18 20:00 Temperature 97.7 F Pulse Rate 93 H 75 76 Respiratory Rate 18 Blood Pressure 160/87 H Pulse Oximetry 98 05/29/18 21:00 05/29/18 22:00 05/29/18 23:00 Temperature 98.1 F Pulse Rate 82 74 85 Respiratory Rate 18 Blood Pressure 159/102 H Pulse Oximetry 98 05/30/18 00:00 05/30/18 01:00 05/30/18 02:00 Temperature Pulse Rate 82 61 61 Respiratory Rate Blood Pressure Pulse Oximetry 05/30/18 03:00 05/30/18 04:00 05/30/18 05:00 Temperature 97.7 F Pulse Rate 77 66 64 Respiratory Rate 20 Blood Pressure 167/75 H Pulse Oximetry 97 05/30/18 06:00 Temperature Pulse Rate 65 Respiratory Rate Blood Pressure Pulse Oximetry Intake & Output 05/29/18 05/30/18 05/30/18 18:59 06:59 18:59 Intake Total 1890 / 1890 1000 / 1000 Output Total 700 / 700 2050 / 2050 Balance 1190 / 1190 -1050 / -1050 Weight 167 lb 8.821 oz Intake: IV 1600 / 1600 1000 / 1000 NS Inj 1,000 ML @ 70 mls/hr IV. 1500 / 1500 1000 / 1000 CONT .[id number] RUDY Rx#: [id number] Rocephin Inj 1,000 MG In NS Inj 100 / 100 100 ML @ 200 mls/hr IV.SIG Q24H RUDY Rx#:[id number] Oral 290 / 290 Output: Urine 700 / 700 700 / 700 Urine Amount (Catheter) 1350 / 1350 Straight 1350 / 1350 Other: Date of Last Bowel Movement 05/26/18 # Bowel Movements 0 Narrative: GENERAL: Well-developed well-nourished. In no acute distress. NECK: No carotid bruits. No JVD. CARDIOVASCULAR: Regular rate and rhythm. No murmur appreciated. RESPIRATORY: No accessory muscle use. Clear to auscultation. Breath sounds equal bilaterally. MUSCULOSKELETAL: No clubbing or cyanosis. No edema. NEUROLOGICAL: Awake and alert. Normal speech. - Urinary Catheter Management Straight Cath placed during this visit: yes, but has since been removed by the nurse Reason for continuing: Not indwelling catheter Insertion date: 05/30/18 Insertion time: 03:15 Removal date: 05/30/18 Removal time: 03:30 Assessment and Plan - Plan 62-year-old male with a past medical history of HTN, HLD who presented for right arm weakness. The patient was found to have acute CVA. The patient also had a recent CVA in March. Recurrent occult CVA: JEFRY 05/29 with tiny PFO, doubt embolic source. Patient has been on aspirin, would recommend addition of Plavix to aspirin at this time for stroke prevention if neurology agreeable. Recommend 30 day event monitor as outpatient to rule out occult atrial fibrillation, discussed with the patient. Discharge planning from cardiology perspective. Discussed Condition With: Patient seen and examined with Dr. Mario - Attending Attestation agree with above. will sign off call with further questions
[2018-05-30] MEDS: Insulin NovoLOG Aspart Correctional Sugar Inj SQ SCH ×4 (08:44→21:23)
--- NOTE | 2018-05-30 10:07 | P.PNIM ---
Subjective Interval history: no new complaints. dysarthria Physical Exam Vital signs: Vital Signs 05/29/18 11:00 05/29/18 12:00 05/29/18 13:00 Temperature 98.2 F Pulse Rate 75 73 93 H Respiratory Rate 18 Blood Pressure 139/78 Pulse Oximetry 98 05/29/18 14:00 05/29/18 15:00 05/29/18 16:00 Temperature 97.8 F Pulse Rate 92 H 86 71 Respiratory Rate 18 Blood Pressure 159/85 H Pulse Oximetry 99 05/29/18 16:39 05/29/18 17:40 05/29/18 19:00 Temperature 97.7 F Pulse Rate 62 93 H 75 Respiratory Rate 18 Blood Pressure 160/87 H Pulse Oximetry 98 05/29/18 20:00 05/29/18 21:00 05/29/18 22:00 Temperature Pulse Rate 76 82 74 Respiratory Rate Blood Pressure Pulse Oximetry 05/29/18 23:00 05/30/18 00:00 05/30/18 01:00 Temperature 98.1 F Pulse Rate 85 82 61 Respiratory Rate 18 Blood Pressure 159/102 H Pulse Oximetry 98 05/30/18 02:00 05/30/18 03:00 05/30/18 04:00 Temperature 97.7 F Pulse Rate 61 77 66 Respiratory Rate 20 Blood Pressure 167/75 H Pulse Oximetry 97 05/30/18 05:00 05/30/18 06:00 05/30/18 07:00 Temperature 98 F Pulse Rate 64 65 90 Respiratory Rate 16 Blood Pressure 168/92 H Pulse Oximetry 98 05/30/18 08:00 05/30/18 09:00 Temperature Pulse Rate 90 66 Respiratory Rate Blood Pressure Pulse Oximetry Intake & Output 05/29/18 05/30/18 05/30/18 18:59 06:59 18:59 Intake Total 1890 / 1890 1000 / 1000 Output Total 700 / 700 2050 / 2050 Balance 1190 / 1190 -1050 / -1050 Weight 76 kg Intake: IV 1600 / 1600 1000 / 1000 NS Inj 1,000 ML @ 70 mls/hr IV. 1500 / 1500 1000 / 1000 CONT .[id number] RUDY Rx#: [id number] Rocephin Inj 1,000 MG In NS Inj 100 / 100 100 ML @ 200 mls/hr IV.SIG Q24H RUDY Rx#:[id number] Oral 290 / 290 Output: Urine 700 / 700 700 / 700 Urine Amount (Catheter) 1350 / 1350 Straight 1350 / 1350 Other: Date of Last Bowel Movement 05/26/18 05/26/18 # Bowel Movements 0 dysarthria follows commands heart reg lung cta abd s/nt ext no edema - Urinary Catheter Management Straight Cath placed during this visit: yes, but has since been removed by the nurse Reason for continuing: Not indwelling catheter Insertion date: 05/30/18 Insertion time: 03:15 Removal date: 05/30/18 Removal time: 03:30 Results - Labs CBC & Chem 7: 05/29/18 03:50 05/29/18 03:50 Laboratory Results - last 24 hr 05/27/18 05/29/18 05/29/18 19:10 12:10 16:21 POC Glucose 100 81 MTS Gel Crossmatch See Detail 05/29/18 05/30/18 21:12 07:54 POC Glucose 95 100 MTS Gel Crossmatch Microbiology 05/27/18 20:10 Clean Catch Urine Urine Culture - Final Escherichia coli Assessment and Plan - Assessment (1) CVA (cerebrovascular accident) Code(s): I63.9 - Cerebral infarction, unspecified Status: Acute Plan: 1. acute cva acute infarct left insular cortex/left frontal subacute infarcts left frontal/temporal. MRI brain 05/28: CONCLUSION: 1. Acute infarct in the left insular cortex and left frontal periventricular white matter. 2. Subacute infarcts in the left frontal lobe and temporal lobe. These areas seen on the prior study of 03/28/2018. CTA BRAIN/CTA carotids 05/28 Atherosclerosis of left mca, mild/mod m1 segment, and left internal carotid JEFRY 05/29: Normal left ventricular size and wall thickness. The left ventricular systolic function is normal with an estimated ejection fraction in the range of 60-65%. Left ventricular diastolic function parameters are normal. Normal left atrial appendage size with no evidence of thrombus formation. Normal atrial septal thickness. Small left to right atrial level shunt is observed with agitated saline contrast administration. Structurally normal mitral valve. Mild mitral valve regurgitation. cont asa/plavix per cardiology recc. no closure of pfo recommended. neuro following OT/PT/ST evaluation. plan for dc to snf soon. hopefully tomorrow. 2. uti. gnr cont abx for ecoli uti. convert to po on dc 3. htn (2) Thrombocytosis Code(s): D47.3 - Essential (hemorrhagic) thrombocythemia Status: Acute (3) UTI (urinary tract infection) Code(s): N39.0 - Urinary tract infection, site not specified Status: Acute (1) CVA (cerebrovascular accident) Qualifiers: CVA mechanism: unspecified Qualified Code(s): I63.9 - Cerebral infarction, unspecified
[2018-05-30 10:29] LABS: Baso # (Auto) 0.1 th/mm3 (0.0-0.2); Baso % (Auto) 0.8 % (0.0-2.0); Eos % (Auto) 0.4 % (0.0-4.0); Hematocrit 44.8 % (39.0-51.0); Hemoglobin 15.3 gm/dL (13.0-17.0); Lymph # (Auto) 1.8 th/mm3 (1.0-4.8); Mean Corpuscular HGB Conc 34.3 % (32.0-36.0); Mean Corpuscular Hemoglobin 29.6 pg (27.0-34.0); Mean Corpuscular Volume 86.4 fL (80.0-100.0); Mean Platelet Volume 7.2 fL (7.0-11.0); Mono # (Auto) 1.6 th/mm3 (0.0-0.9); Mono % (Auto) 18.7 % (0.0-8.0); Neut # (Auto) 5.1 th/mm3 (1.8-7.7); Neut % (Auto) 59.1 % (16.0-70.0); Platelet Count 640 th/mm3 (150-450); Red Blood Count 5.19 mil/mm3 (4.50-5.90); Red Cell Distribution Width 14.2 % (11.6-17.2); White Blood Count 8.6 th/mm3 (4.0-11.0)
[2018-05-30 12:02] LABS: Burr Cells 1+; Platelet Morphology Normal (Normal)
[2018-05-30] MEDS ORDERED: Docusate Sodium 100 MG Capsule PO ONE (23:15)
[2018-05-31 04:32] LABS: Baso # (Auto) 0.1 th/mm3 (0.0-0.2); Baso % (Auto) 0.7 % (0.0-2.0); Eos # (Auto) 0.1 th/mm3 (0.0-0.4); Hematocrit 45.4 % (39.0-51.0); Hemoglobin 15.8 gm/dL (13.0-17.0); Lymph % (Auto) 21.1 % (9.0-44.0); Mean Corpuscular HGB Conc 34.7 % (32.0-36.0); Mean Corpuscular Hemoglobin 29.8 pg (27.0-34.0); Mean Corpuscular Volume 85.8 fL (80.0-100.0); Mean Platelet Volume 7.6 fL (7.0-11.0); Mono # (Auto) 1.7 th/mm3 (0.0-0.9); Neut # (Auto) 5.7 th/mm3 (1.8-7.7); Neut % (Auto) 59.2 % (16.0-70.0); Platelet Count 669 th/mm3 (150-450); Red Blood Count 5.29 mil/mm3 (4.50-5.90); Red Cell Distribution Width 14.1 % (11.6-17.2); White Blood Count 9.6 th/mm3 (4.0-11.0)
[2018-05-31] MEDS: Sod Chloride 0.9% Inj 1,000 ML IV.CONT SCH ×2 (05:53→10:53)
[2018-05-31 08:05] VITALS: RESP 17
[2018-05-31] MEDS: Insulin NovoLOG Aspart Correctional Sugar Inj SQ SCH ×2 (09:04→11:17)
--- NOTE | 2018-05-31 12:07 | P.PNIM ---
Subjective Interval history: pt eager to start rehab. Physical Exam Vital signs: Vital Signs 05/30/18 13:00 05/30/18 14:00 05/30/18 14:51 Temperature Pulse Rate 109 H 90 84 Respiratory Rate Blood Pressure Pulse Oximetry 05/30/18 15:00 05/30/18 16:00 05/30/18 17:00 Temperature 98.1 F Pulse Rate 82 82 89 Respiratory Rate 18 Blood Pressure 169/95 H Pulse Oximetry 100 05/30/18 18:00 05/30/18 19:00 05/30/18 20:00 Temperature 98.4 F Pulse Rate 92 H 93 H 82 Respiratory Rate 18 Blood Pressure 157/90 H Pulse Oximetry 96 05/30/18 21:00 05/30/18 22:00 05/30/18 23:00 Temperature 97.9 F Pulse Rate 82 86 91 H Respiratory Rate 18 Blood Pressure 147/74 H Pulse Oximetry 98 05/31/18 00:00 05/31/18 01:00 05/31/18 02:00 Temperature Pulse Rate 80 80 100 H Respiratory Rate Blood Pressure Pulse Oximetry 05/31/18 03:00 05/31/18 04:00 05/31/18 05:00 Temperature 97.8 F Pulse Rate 79 71 72 Respiratory Rate 18 Blood Pressure 165/84 H Pulse Oximetry 95 05/31/18 06:00 05/31/18 07:00 05/31/18 08:00 Temperature 98.0 F Pulse Rate 72 85 85 Respiratory Rate 17 Blood Pressure 153/86 H Pulse Oximetry 98 05/31/18 09:00 05/31/18 10:00 05/31/18 11:00 Temperature 98.3 F Pulse Rate 85 82 90 Respiratory Rate 17 Blood Pressure 137/85 Pulse Oximetry 97 Intake & Output 05/30/18 05/31/18 05/31/18 18:59 06:59 18:59 Intake Total 1820 / 1820 1480 / 1480 Output Total 425 / 425 375 / 375 Balance 1395 / 1395 1105 / 1105 Weight 76.5 kg Intake: IV 1100 / 1100 1000 / 1000 NS Inj 1,000 ML @ 70 mls/hr IV. 1000 / 1000 1000 / 1000 CONT .[id number] [facility] Rx#: [id number] Rocephin Inj 1,000 MG In NS Inj 100 / 100 100 ML @ 200 mls/hr IV.SIG Q24H RUDY Rx#:[id number] Oral 720 / 720 480 / 480 Output: Urine 425 / 425 375 / 375 Other: Date of Last Bowel Movement 05/26/18 heart reg lung cta abd s/nt ext no edema - Urinary Catheter Management Straight Cath placed during this visit: yes, but has since been removed by the nurse Reason for continuing: Not indwelling catheter Insertion date: 05/30/18 Insertion time: 03:15 Removal date: 05/30/18 Removal time: 03:30 Results - Labs CBC & Chem 7: 05/31/18 03:54 05/29/18 03:50 Laboratory Results - last 24 hr 05/28/18 05/30/18 05/30/18 05:06 12:04 16:42 WBC RBC Hgb Hct MCV MCH MCHC RDW Plt Count MPV Neut % (Auto) Lymph % (Auto) [place] % (Auto) Eos % (Auto) Baso % (Auto) Neut # (Auto) Lymph # (Auto) [place] # (Auto) Eos # (Auto) Baso # (Auto) WBC Differential Differential Comment POC Glucose 88 81 Rout Panel Path Interp 05/30/18 05/31/18 05/31/18 20:58 03:54 07:37 WBC 9.6 RBC 5.29 Hgb 15.8 Hct 45.4 MCV 85.8 MCH 29.8 MCHC 34.7 RDW 14.1 Plt Count 669 H MPV 7.6 Neut % (Auto) 59.2 Lymph % (Auto) 21.1 [place] % (Auto) 18.0 H Eos % (Auto) 1.0 Baso % (Auto) 0.7 Neut # (Auto) 5.7 Lymph # (Auto) 2.0 [place] # (Auto) 1.7 H Eos # (Auto) 0.1 Baso # (Auto) 0.1 WBC Differential . Differential Comment Auto diff final POC Glucose 95 161 H Rout Panel Path Interp 05/31/18 10:36 WBC RBC Hgb Hct MCV MCH MCHC RDW Plt Count MPV Neut % (Auto) Lymph % (Auto) [place] % (Auto) Eos % (Auto) Baso % (Auto) Neut # (Auto) Lymph # (Auto) [place] # (Auto) Eos # (Auto) Baso # (Auto) WBC Differential Differential Comment POC Glucose 138 H Rout Panel Path Interp Assessment and Plan - Assessment (1) CVA (cerebrovascular accident) Code(s): I63.9 - Cerebral infarction, unspecified Status: Acute Plan: 1. acute cva acute infarct left insular cortex/left frontal subacute infarcts left frontal/temporal. Atherosclerosis of left mca, mild/mod m1 segment, and left internal carotid small pfo had some expressive aphasia and right arm weakness MRI brain 05/28: CONCLUSION: 1. Acute infarct in the left insular cortex and left frontal periventricular white matter. 2. Subacute infarcts in the left frontal lobe and temporal lobe. These areas seen on the prior study of 03/28/2018. CTA BRAIN/CTA carotids 05/28 Atherosclerosis of left mca, mild/mod m1 segment, and left internal carotid JEFRY 05/29: Normal left ventricular size and wall thickness. The left ventricular systolic function is normal with an estimated ejection fraction in the range of 60-65%. Left ventricular diastolic function parameters are normal. Normal left atrial appendage size with no evidence of thrombus formation. Normal atrial septal thickness. Small left to right atrial level shunt is observed with agitated saline contrast administration. Structurally normal mitral valve. Mild mitral valve regurgitation. cont asa/plavix per cardiology recc. no closure of pfo recommended. neuro following. f/u outpt f/u cardiology for outpt event monitor OT/PT/ST evaluation. hold scheduled bp medication and use prn for now. dc to snf. ADDENDUM: PT GOING TO [place]. PT HAD ANOTHER 900CC URINE RETENTION. FLOMAX. COSTELLO AND TRY TO REMOVE IN NEXT 4 OR 5 DAYS AT [facility]. IF RETAINS AGAIN AFTER REMOVAL WILL NEED TO REPLACE AND REFER TO UROLOGY. 2. uti. gnr. ecoli cont abx for ecoli uti. convert to po on dc 3. htn (2) Thrombocytosis Code(s): D47.3 - Essential (hemorrhagic) thrombocythemia Status: Acute (3) UTI (urinary tract infection) Code(s): N39.0 - Urinary tract infection, site not specified Status: Acute (1) CVA (cerebrovascular accident) Qualifiers: CVA mechanism: unspecified Qualified Code(s): I63.9 - Cerebral infarction, unspecified
[2018-05-31 15:03] VITALS: BP 147/83; PULSE 87; O2SAT 99
[2018-05-31 15:16] VITALS: TEMP 98.3
--- NOTE | 2018-05-31 21:59 | HM ---
Date Performed: 05/29/2018 Time Performed: 16:32:00 HOOKUP DATE: 05/29/18 04:32:00 PM Mon ANALYSIS START TIME: 05/29/2018 4:37:00 PM ANALYSIS END TIME: 05/30/2018 4:25:00 PM PATIENT AGE: 62 PATIENT HEIGHT: 70 PATIENT WEIGHT: 185 DRUG LIST: ROOM 455 PATIENT DIAGNOSIS: CVA VS TIA TEST NARRATIVE: The patient's average heart rate was 79 BPM. Heart rates greater than 120 B PM were noted < 1% of the time. Heart rates less than 50 BPM were noted < 1% of the time. One pa use of 2.0 seconds occurred at 10:29 PM. 8 ventricular ectopics, which represented < 1% of the to moose beat count, were noted. The highest ventricular ectopic frequency occurred from 11:00 AM to 12:0 0 PM Tue. During this time 2 VE(s) occurred. Ventricular ectopics were observed as 8 isolated beat( s) only. No couplets or runs were noted. 758 supraventricular ectopics, which represented 1% of the total beat count, were noted. The highest supraventricular ectopic frequency occurred from 10:00 PM to 11:00 PM Mon. During this time 172 SVE(s) occurred. No episodes of ST depression (defined as -1.0 mm or more) were noted in channel 1. No episodes of ST depression (defined as -1.0 mm or mo re) were noted in channel 2. No episodes of ST depression (defined as -1.0 mm or more) were noted in channel 3. NO DIARY WAS GIVEN TO PATIENT TEST INTERPRETATION: Sinus rhythm Occasional PACs Rare PVCs Signed by : Belia Brown
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
== END 2018-05-31 15:40 ==
LOC: PHED 18:59 → PHEDA 20:49 → PH3 22:00 → HCPC 05-28 18:59
PROVIDERS: ADMIT Hospitalist; ATTEND Hospitalist